=== PATIENT | female | born 1990 | race Asian ===

== ENCOUNTER 2017-05-16 08:00 | Outpatient (RCR) | payer OTHER, MEDICAID | END 2017-06-05 10:26 | disposition home or self-care (01) | LOC: WSPT 08:00 | DX: M25.572 Pain in left ankle and joints of left foot (principal); M25.561 Pain in right knee; M25.562 Pain in left knee ==

== ENCOUNTER → 2017-10-02 | Outpatient (CLI) | payer OTHER | LOC: COL.RAD 12:23 | DX: M53.82 Other specified dorsopathies, cervical region (principal); M54.6 Pain in thoracic spine ==

== ENCOUNTER 2017-10-16 09:00 | Outpatient (RCR) | payer MEDICAID | END 2017-10-19 09:22 | disposition home or self-care (01) | LOC: WSPT 09:00 | DX: M54.6 Pain in thoracic spine (principal); R29.898 Other symptoms and signs involving the musculoskeletal system ==

== ENCOUNTER 2017-11-24 15:24 | Emergency (ER) | payer MEDICAID ==
[~2017-11-24] VITALS: Ht 167.6 cm; Wt 86.4 kg
[2017-11-24 15:34] VITALS: TEMP 98.3
[2017-11-24] MEDS ORDERED: OCUFLOX OPHTH DR5 ML OS (15:52)
[2017-11-24 15:58] VITALS: BP 115/70; PULSE 72
== END 2017-11-24 15:59 | disposition home or self-care (01) ==
LOC: COL.ER 15:24
DX: H10.9 Unspecified conjunctivitis (principal)

== ENCOUNTER → 2018-02-04 | Outpatient (CLI) | payer MEDICAID ==
[~2018-02-04] MED LIST: OCUFLOX OPHTH DR5 ML OS
== END ==
LOC: COL.RAD 12:16
DX: M79.671 Pain in right foot (principal); M25.571 Pain in right ankle and joints of right foot

== ENCOUNTER → 2018-03-28 | Outpatient (CLI) | payer MEDICAID ==
[2018-03-28 14:08] LABS: CALCIUM 9.4 mg/dL (8.4-10.2); CREATININE, serum 0.58 mg/dL (0.52-1.25); POTASSIUM 3.7 mmol/L (3.4-5.0)
== END ==
LOC: COL.LAB 13:31
PROVIDERS: Nurse Practitioner Family
DX: Z79.899 Other long term (current) drug therapy (principal)

== ENCOUNTER → 2018-11-27 | Outpatient (CLI) | payer MEDICAID | LOC: COL.RAD 14:02 | DX: M25.572 Pain in left ankle and joints of left foot (principal) ==

== ENCOUNTER → 2019-04-03 | Outpatient (CLI) | payer MEDICAID ==
[2019-04-03 16:02] LABS: CALCIUM 9.9 mg/dL (8.4-10.2); CREATININE, serum 0.53 (0.52-1.25); POTASSIUM 3.9 mmol/L (3.4-5.0)
== END ==
LOC: COL.LAB 15:28
PROVIDERS: Nurse Practitioner Family
DX: Z79.899 Other long term (current) drug therapy (principal)

== ENCOUNTER 2020-02-28 16:16 | Emergency (ER) | payer MEDICAID ==
[~2020-02-28] VITALS: Ht 165.1 cm; Wt 78.2 kg
[2020-02-28 16:30] VITALS: BP 102/68; TEMP 97.6
[2020-02-28 16:55] LABS: COLLECTION METHOD CLEAN CATCH
[2020-02-28 17:01] LABS: MUCOUS Present /lpf; PH 6 (5-8); URINE APPEARANCE Hazy; URINE BACTERIA None Seen /hpf; URINE BILIRUBIN Negative (NEGATIVE); URINE BLOOD Negative (NEGATIVE); URINE COLOR Yellow; URINE GLUCOSE Negative (NEGATIVE); URINE KETONE Negative (NEGATIVE); URINE LEUKOCYTE ESTERASE Negative (NEGATIVE); URINE NITRATE Negative (NEGATIVE); URINE PROTEIN(semi-quant) Negative (NEGATIVE); URINE UROBILINOGEN Negative (NEGATIVE)
[2020-02-28 17:03] LABS: BASO # 0.1 (0.0-0.2); BASO % 0.8 % (0.0-2.0); EOS # 1.6 (0.0-0.7); EOS % 18.5 % (0-4.0); GRAN % 56.9 % (42.2-75.2); HEMATOCRIT 40.9 % (37.0-47.0); HEMOGLOBIN 13.4 g/dl (12.5-16.0); LYMPH # 1.7 (1.2-3.4); LYMPH % 18.7 % (20.0-51.0); MEAN CELL VOLUME 86 fl (80.0-100.0); MEAN CORPUSCULAR HEMOGLOBIN 28 pg (27.0-31.0); MEAN CORPUSCULAR HGB CONC 33 g/dl (33.0-37.0); MEAN PLATELET VOLUME 10.3 fl (7.4-10.4); MONO # 0.4 (0.1-0.6); MONO % 4.9 % (1.7-9.3); PLATELET COUNT 160 K/mm3 (130-400); RED BLOOD COUNT 4.74 M/mm3 (4.10-5.30); REDCELL DISTRIBUTION WIDTH-CV 12.4 % (11.5-14.5)
[2020-02-28 17:16] LABS: ALANINE AMINOTRANSFERASE 27 U/L (4-34); ALBUMIN 4.2 gm/dL (3.5-5.0); ALKALINE PHOSPHATASE 55 U/L (50-136); ANION GAP 9 mmol/L (7-16); AST,SGOT 28 U/L (15-37); BILIRUBIN,TOTAL 0.5 mg/dL (0.0-1.0); BLOOD UREA NITROGEN 15 mg/dL (7-17); C-REACTIVE PROTEIN < 0.5 mg/dL (0.0-0.9); CALCIUM 9.3 mg/dL (8.4-10.2); CARBON DIOXIDE 28 mmol/L (22-30); CHLORIDE 103 mmol/L (98-107); CREATININE, serum 0.59 (0.52-1.25); GLUCOSE 79 mg/dL (74-106); LIPASE 45 U/L (23-300); POTASSIUM 3.7 mmol/L (3.4-5.0); SODIUM 140 mmol/L (137-145); TOTAL PROTEIN 7.1 gm/dL (6.4-8.2)
[2020-02-28 17:59] VITALS: PULSE 84
== END 2020-02-28 18:00 | disposition home or self-care (01) ==
LOC: COL.ER 16:16
PROVIDERS: Family Medicine
DX: R10.11 Right upper quadrant pain (principal); R11.0 Nausea; Z32.02 Encounter for pregnancy test, result negative
CPT/HCPCS: J7120

== ENCOUNTER 2020-03-09 08:18 | Emergency (ER) | payer MEDICAID ==
[~2020-03-09] VITALS: Ht 165.1 cm; Wt 66.8 kg
[2020-03-09 08:41] VITALS: TEMP 99
[2020-03-09 12:13] LABS: COLLECTION METHOD CLEAN CATCH
[2020-03-09 12:19] LABS: BASO # 0.1 (0.0-0.2); BASO % 0.6 % (0.0-2.0); EOS # 3.1 (0.0-0.7); GRAN # 4.3 (1.4-6.5); GRAN % 42.5 % (42.2-75.2); HEMATOCRIT 42.1 % (37.0-47.0); LYMPH # 2.2 (1.2-3.4); LYMPH % 21.2 % (20.0-51.0); MEAN CELL VOLUME 87 fl (80.0-100.0); MEAN CORPUSCULAR HEMOGLOBIN 29 pg (27.0-31.0); MEAN CORPUSCULAR HGB CONC 33 g/dl (33.0-37.0); MEAN PLATELET VOLUME 10.5 fl (7.4-10.4); MONO # 0.4 (0.1-0.6); MONO % 4.3 % (1.7-9.3); PLATELET COUNT 174 K/mm3 (130-400); RED BLOOD COUNT 4.85 M/mm3 (4.10-5.30); REDCELL DISTRIBUTION WIDTH-CV 12.9 % (11.5-14.5)
[2020-03-09 12:23] LABS: MUCOUS Present /lpf; PH 6 (5-8); URINE APPEARANCE Clear; URINE BACTERIA None Seen /hpf; URINE BILIRUBIN Negative (NEGATIVE); URINE BLOOD Negative (NEGATIVE); URINE COLOR Yellow; URINE GLUCOSE Negative (NEGATIVE); URINE KETONE Negative (NEGATIVE); URINE LEUKOCYTE ESTERASE Negative (NEGATIVE); URINE NITRATE Negative (NEGATIVE); URINE PROTEIN(semi-quant) Negative (NEGATIVE); URINE RBC 0-2 /hpf; URINE UROBILINOGEN Negative (NEGATIVE)
[2020-03-09 12:37] LABS: ALANINE AMINOTRANSFERASE 18 U/L (4-34); ALBUMIN 4.4 gm/dL (3.5-5.0); ALKALINE PHOSPHATASE 54 U/L (50-136); ANION GAP 7 mmol/L (7-16); AST,SGOT 26 U/L (15-37); BILIRUBIN,TOTAL 0.9 mg/dL (0.0-1.0); BLOOD UREA NITROGEN 6 mg/dL (7-17); CALCIUM 9.4 mg/dL (8.4-10.2); CARBON DIOXIDE 28 mmol/L (22-30); CHLORIDE 103 mmol/L (98-107); CREATININE, serum 0.56 (0.52-1.25); GLUCOSE 93 mg/dL (74-106); POTASSIUM 3.9 mmol/L (3.4-5.0); SODIUM 139 mmol/L (137-145); TOTAL PROTEIN 7.4 gm/dL (6.4-8.2)
[2020-03-09 12:38] LABS: C-REACTIVE PROTEIN < 0.5 mg/dL (0.0-0.9)
[2020-03-09 15:20] VITALS: BP 118/74; PULSE 87
== END 2020-03-09 15:20 | disposition home or self-care (01) ==
LOC: COL.ER 08:18
PROVIDERS: Nurse Practitioner Primary Care
DX: O26.891 Other specified pregnancy related conditions, first trimester (principal); R10.12 Left upper quadrant pain; R10.31 Right lower quadrant pain; Z3A.00 Weeks of gestation of pregnancy not specified
CPT/HCPCS: J1885

== ENCOUNTER → 2020-03-09 | Outpatient (CLI) | payer MEDICAID | LOC: COL.RAD 07:05 | DX: R10.11 Right upper quadrant pain (principal) ==

== ENCOUNTER → 2020-09-22 | Outpatient (CLI) | payer MEDICAID ==
[~2020-09-22] MED LIST changes: +IBU600 MG PO; +PERCOCET 325 MG1 TA2 PO; +PRENATAL PO
== END ==
LOC: MC.RAD 08:30
DX: R22.31 Localized swelling, mass and lump, right upper limb (principal)

== ENCOUNTER 2020-10-17 00:10 | Inpatient (IN) | payer MEDICAID ==
[~2020-10-17] VITALS: Ht 167.6 cm; Wt 103.6 kg
[2020-10-17] VITALS (40 sets, daily range): BP systolic 103–143; BP diastolic 47–80; PULSE 75–96; TEMP 97.9–98.7
[~2020-10-17 00:10] MED LIST changes: -IBU600 MG PO; -PERCOCET 325 MG1 TA2 PO; -PRENATAL PO
--- NOTE | 2020-10-17 00:15 | NUR ---
PT TO UNIT VIA WHEELCHAIR WITH COMPLAINTS OF CONTRACTIONS. ORIENTED TO ROOM, CHANGED INTO GOWN, VS OBTAINED, EFMX3 APPLIED, SVE PERFORMED.
[2020-10-17] MEDS ORDERED: PRENATAL PO (00:42)
--- NOTE | 2020-10-17 01:07 | NUR ---
PT UP TO BATHROOM.
--- NOTE | 2020-10-17 01:15 | NUR ---
DR. GALLAGHER IN ROOM TO EVALUATE PT. BEDSIDE US PERFORMED, VERTEX/VERTEX.
[2020-10-17 01:32] LABS: COLLECTION METHOD CLEAN CATCH
[2020-10-17 01:34] LABS: BASO % 0.2 % (0.0-2.0); EOS % 0.7 % (0-4.0); GRAN # 3.4 (1.4-6.5); GRAN % 60.4 % (42.2-75.2); HEMOGLOBIN 11.8 g/dl (12.5-16.0); LYMPH # 1.6 (1.2-3.4); LYMPH % 28.1 % (20.0-51.0); MEAN CELL VOLUME 85 fl (80.0-100.0); MEAN CORPUSCULAR HEMOGLOBIN 27 pg (27.0-31.0); MEAN CORPUSCULAR HGB CONC 32 g/dl (33.0-37.0); MEAN PLATELET VOLUME 12.6 fl (7.4-10.4); MONO # 0.5 (0.1-0.6); MONO % 9.5 % (1.7-9.3); PLATELET COUNT 102 K/mm3 (130-400); RED BLOOD COUNT 4.34 M/mm3 (4.10-5.30); REDCELL DISTRIBUTION WIDTH-CV 13.7 % (11.5-14.5)
[2020-10-17 01:35] LABS: HEMATOCRIT 36.7 % (37.0-47.0)
[2020-10-17 01:45] LABS: ALBUMIN 3.3 gm/dL (3.5-5.0); BILIRUBIN,TOTAL 0.1 mg/dL (0.0-1.0); CALCIUM 9.3 mg/dL (8.4-10.2); CREATININE, serum 0.42 (0.52-1.25); POTASSIUM 3.7 mmol/L (3.4-5.0); TOTAL PROTEIN 6.5 gm/dL (6.4-8.2)
[2020-10-17 01:48] LABS: MUCOUS Present /lpf; PH 6 (5-8); URINE APPEARANCE Hazy; URINE BACTERIA None Seen /hpf; URINE BILIRUBIN Negative (NEGATIVE); URINE BLOOD Negative (NEGATIVE); URINE COLOR Yellow; URINE GLUCOSE Negative (NEGATIVE); URINE KETONE Negative (NEGATIVE); URINE LEUKOCYTE ESTERASE Trace (NEGATIVE); URINE NITRATE Negative (NEGATIVE); URINE PROTEIN(semi-quant) Negative (NEGATIVE); URINE UROBILINOGEN Negative (NEGATIVE)
--- NOTE | 2020-10-17 06:20 | NUR ---
This RN assumes care of patient and received bedside report from Sakshi CORTEZ. Patient has no needs at this time. 0630: at bedside. SVE: 6-7//-2 and plan of care updated. Dr. Dunne reports off to Dr. Ortega. 0730: Dr. Ortega at bedside discussing plan of care. Patient agrees with plan to get epidural and then break water. Risks discussed and questions answereed. Arely TAX EXAMINING TECHNICIAN notified. 0740: Patient up to bathroom to void. 0743: Patient sitting on edge of bed for placement of epidural. Sushma Ibrahim CRNA at bedside and questions answered. Difficulty tracing FHRs due to maternal position. 0753: Test dose given and patient tolerates well. 0808: Dr. Ortega at bedside assessing patient and FHRs. Plan of care discussed. 0809: SVE per physician: 7-8 and AROM at this time with clear fluid noted. 0840: Dr. Ortega at bedside and assessing patient and FHRs. SVE per physician:8-9 and orders to head back to the OR at this time. Patient prepped to go to OR for twin delivery. 0900: Patient off monitors and to OR via bed.
--- NOTE | 2020-10-17 08:57 | NUR ---
Patient on OR table and monitors back on. 0850: Dr. Ortega at bedside and SVE:9-10. Dr. Ortega straight catherizes patient at this time and 50ml obtained. 0900: SVE-complete and pushing instructions discussed. 0903: Patient begins to push with contractions per Dr. Ortega orders. 0907: Spontaneous vaginal delivery of viable male-Twin A- head followed by body. bulb syringed and cord clamped by physician and cut by FOB. Infant to radiant warmer and Kerrie Mckenna RN assumes care of infant. Dr. Aranza Morley to find Baby Bs position. in vertex position with foot presentation. Dr. Ortega continues to wait for infant to come lower with contractions. 0914: Dr. Ortega orders to start pitocin at 2ml/hr per protocol. Piticin started at this time. FHR [id number] 0925: As infant moves lower vertex position with hand/foot/possible cord presenting. Membranes intact at this time. FHR:155-160bmp Dr. Ortega discussing with patient plan and potential needed. 0940: AROM at this time and Dr. Ortega trying to manipulate infants position. Dr. Ortega orders for at this time. 0951: Csection delivery and Brian CORTEZ assumes care of . Cord blood and cord gases obtained for both infants.
[2020-10-18 04:30] VITALS: BP 117/70; PULSE 80; TEMP 97.7
[2020-10-18 07:50] VITALS: BP 112/62; PULSE 93; TEMP 98.2
[2020-10-18 08:22] LABS: HEMOGLOBIN 11.5 g/dl (12.5-16.0)
[2020-10-18 08:24] LABS: HEMATOCRIT 36.3 % (37.0-47.0)
--- NOTE | 2020-10-18 09:46 | NUR ---
Initial visit; Patient thanked [employer] Specialist for offering congratulations and God's blessings for the twins. [employer] Specialist thanked mom for choosing [place].
--- NOTE | 2020-10-18 14:00 | NUR ---
DRESSING OFF AFTER SHOWER, INCISION C/D/I.
[2020-10-18 16:00] VITALS: BP 105/65; PULSE 90; TEMP 98.1
[2020-10-18 20:15] VITALS: BP 114/59; PULSE 90; TEMP 97.3
--- NOTE | 2020-10-19 07:13 | NUR ---
REPORT RECEIVED FROM OFF GOING RN, CE Quintana. CARE TAKEN OVER BY THIS RN.
[2020-10-19 07:25] VITALS: BP 114/58; PULSE 93; TEMP 97.9
[2020-10-19] MEDS ORDERED: IBU600 MG PO (09:06)
[2020-10-19] MEDS ORDERED: PERCOCET 325 MG1 TA2 PO (09:06)
[2020-10-19 15:44] VITALS: BP 116/62; PULSE 92; TEMP 97.8
[2020-10-19 22:30] VITALS: BP 117/53; PULSE 89; TEMP 97.7
[2020-10-20 07:59] VITALS: BP 119/63; PULSE 90; TEMP 98.4
[2020-10-20 16:57] VITALS: BP 109/60; PULSE 89; TEMP 97.9
[2020-10-20 20:00] VITALS: BP 108/53; PULSE 92; TEMP 97.7
[2020-10-21 07:20] VITALS: BP 121/75; PULSE 88; TEMP 98.3
--- NOTE | 2020-10-21 12:53 | NUR ---
1200 DISCHARGE INSTRUCTIONS GIVEN FOR MOTHER AND INFANTS. INFANTS PLACED IN CARSEATS, STRAPS CHECKED. THIS RN CARRIED INFANTS TO CAR. DIEGO HIGGINBOTHAM CARRIED MOTHERS BELONGINGS. PT CARRIED WATER JUG AND WALKED TO ER ENTRANCE WITH NURSES. FOB WAITING THERE. CARSEAT BASES SECURED AND INFANTS PLACED IN BASE REAR FACING. PT UNDERSTANDS DC INSTRUCTIONS WITH NO QUESTIONS AT THIS TIME.
== END 2020-10-21 12:20 | disposition home or self-care (01) | DRG 787 ==
LOC: LDRO 00:10 → LDR 00:23 → LDRO 01:50 → OB 01:59 → LDR 01:59 → OB 11:09
PROVIDERS: Obstetrics & Gynecology; ADMIT Obstetrics & Gynecology
PROC: 10D00Z1 Extraction of Products of Conception, Low, Open Approach (ICD-10-PCS; principal; 2020-10-17)
PROC: 10E0XZZ Delivery of Products of Conception, External Approach (ICD-10-PCS; 2020-10-17)
PROC: 10907ZC Drainage of Amniotic Fluid, Therapeutic from Products of Conception, Via Natural or Artificial Opening (ICD-10-PCS; 2020-10-17)
DX: O60.14X0 Preterm labor third trimester with preterm delivery third trimester, not applicable or unspecified (principal); O99.12 Other diseases of the blood and blood-forming organs and certain disorders involving the immune mechanism complicating childbirth; Z3A.35 35 weeks gestation of pregnancy; O69.0XX1 Labor and delivery complicated by prolapse of cord, fetus 1; O30.043 Twin pregnancy, dichorionic/diamniotic, third trimester
CPT/HCPCS: J0690; J1100; J1885; J2270; J2400; J2405; J2540; J2590; J3105; J7120

== ENCOUNTER 2024-04-09 16:38 | Emergency (ER) | payer MEDICAID ==
[~2024-04-09] VITALS: Ht 170.2 cm; Wt 81.4 kg
[~2024-04-09 16:38] MED LIST changes: +CEPHALEXIN500 M1 PO; +IBU600 MG PO; +PERCOCET 325 MG1 TA2 PO; +PRENATAL PO; +TAMIFLU 75MG75 MG PO; +ZOFRAN8 MG PO
[2024-04-09 16:54] VITALS: BP 103/71; PULSE 84; TEMP 98.3
== END 2024-04-09 18:40 | disposition left against medical advice (07) ==
LOC: COL.ER 16:38
DX: M79.671 Pain in right foot (principal); Z53.29 Procedure and treatment not carried out because of patient's decision for other reasons